=== PATIENT | male | born 1980 | race Caucasian/White ===

== ENCOUNTER 2016-12-26 01:05 | Emergency (ER) | payer OTHER ==
[~2016-12-26] VITALS: Ht 172.7 cm; Wt 83.4 kg
[2016-12-26] MEDS ORDERED: ZIPRASIDONE 20 MG INJ IM ONE ×2 (01:27→01:30)
[2016-12-26 02:02] LABS: HEMATOCRIT 41.6 % (39.2-51.8); HEMOGLOBIN 13.9 g/dL (13.7-18.0); WHITE BLOOD COUNT 8.4 x10^3/uL (3.4-10)
[2016-12-26 02:09] LABS: BLOOD UREA NITROGEN 22 mg/dL (7-18)
[2016-12-26 02:12] LABS: ACETAMINOPHEN < 2 mcg/mL (10-30)
[2016-12-26 06:41] VITALS: BP 131/70
== END 2016-12-26 06:42 | disposition home or self-care (01) ==
LOC: ED 02:36
DX: F15.150 Other stimulant abuse with stimulant-induced psychotic disorder with delusions (principal); Z72.9 Problem related to lifestyle, unspecified; Z87.891 Personal history of nicotine dependence; F22 Delusional disorders
CPT/HCPCS: 36415; 80048; 80307; 80329; 82040; 85025; 96372; 99284; J3486; G0480

== ENCOUNTER 2019-06-10 06:16 | Emergency (ER) | payer OTHER ==
[~2019-06-10] VITALS: Ht 180.3 cm; Wt 68.9 kg
[2019-06-10 06:21] VITALS: BP 125/80
[2019-06-10] MEDS ORDERED: PROPARACAINE OPHTH 0.5%, 15ML ONE (06:27)
[2019-06-10] MEDS ORDERED: FLUORESCEIN OPHTHALMIC 1 MG STRIP ONE (06:27)
--- NOTE | 2019-06-10 06:46 | NUR ---
Hima rodriguez in [facility] - 06/10/19 at 0648 by MONTY RECEIVED REPORT FROM SARAH WILSON AND ASSUMED CARE
[2019-06-10] MEDS ORDERED: DIPH,PERTUSS(ACELL),TET VAC/PF 0.5 ML IM-VACC ONE ×2 (07:00→07:04)
== END 2019-06-10 07:30 | disposition home or self-care (01) ==
LOC: ED 07:26
DX: T15.01XA Foreign body in cornea, right eye, initial encounter (principal); F17.200 Nicotine dependence, unspecified, uncomplicated; X58.XXXA Exposure to other specified factors, initial encounter; Y93.89 Activity, other specified; Y92.89 Other specified places as the place of occurrence of the external cause; Y99.8 Other external cause status
CPT/HCPCS: 65222; 90471; 90715; 99283

== ENCOUNTER 2019-12-08 12:48 | Outpatient (CLI) | payer OTHER ==
[2019-12-08] MEDS ORDERED: None at this Time (13:37)
== END 2019-12-08 23:59 | disposition home or self-care (01) ==
LOC: STAR 12:48
PROVIDERS: ATTEND Orthopaedic Surgery
DX: Z01.818 Encounter for other preprocedural examination (principal); Z11.59 Encounter for screening for other viral diseases
CPT/HCPCS: 36415; 87635

== ENCOUNTER 2019-12-12 05:38 | Day surgery (SDC) | payer OTHER ==
[~2019-12-12] VITALS: Ht 180.3 cm; Wt 70.2 kg
[~2019-12-12 05:38] MED LIST: None at this Time
[2019-12-12] MEDS ORDERED: LACTATED RINGERS 1,000 ML IV SCH (05:56)
[2019-12-12] MEDS ORDERED: IBUP-1223 PO (05:59)
[2019-12-12 06:00] VITALS: BP 125/81
[2019-12-12] MEDS ORDERED: BUPIVACAINE/PF 0.5% ONE (06:00)
[2019-12-12] MEDS ORDERED: CHLORHEXIDINE 15 ML UDC MM ONE (06:00)
[2019-12-12] MEDS ORDERED: LIDOCAINE 1%, 20ML ONE (06:01)
[2019-12-12] MEDS ORDERED: FENTANYL PF 100 MCG/2ML ONE ×2 (06:57→07:47)
[2019-12-12] MEDS ORDERED: PROPOFOL 50 ML ONE (06:57)
[2019-12-12] MEDS: FENTANYL PF 100 MCG/2ML IV PRN ×2 (07:49→07:55)
[2019-12-12] MEDS ORDERED: OXYcodone 5 MG/5 ML ORAL.SOL UDC ONE (07:58)
[2019-12-12] MEDS ORDERED: MEPERIDINE/PF 25MG/ML,1ML ONE (08:03)
[2019-12-12] MEDS ORDERED: KETOROLAC 30 MG/1 ML ONE (08:05)
[2019-12-12] MEDS ORDERED: DIPHENHYDRAMINE 50 MG/ML, 1ML IVPush PRN (08:30)
[2019-12-12] MEDS ORDERED: DIAZEPAM 5 MG/ML, 2ML IVPush PRN (08:30)
[2019-12-12] MEDS ORDERED: EPHEDRINE 50 MG/ML, 1ML IM PRN (08:30)
[2019-12-12] MEDS ORDERED: ONDANSETRON 2MG/ML, 2ML IVPush PRN (08:30)
[2019-12-12] MEDS ORDERED: morphine SULFATE 10 MG/ML, 1ML IVPush PRN (08:30)
[2019-12-12] MEDS ORDERED: PROMETHAZINE 25 MG/ML, 1ML IVPush PRN (08:30)
[2019-12-12] MEDS ORDERED: KETOROLAC 30 MG/1 ML IVPush PRN (08:30)
[2019-12-12] MEDS ORDERED: OXYcodone 5 MG/5 ML ORAL.SOL UDC PO PRN (08:30)
[2019-12-12] MEDS ORDERED: MEPERIDINE/PF 25MG/0.5ML IVPush PRN (08:30)
== END 2019-12-12 09:35 | disposition home or self-care (01) ==
LOC: OUT 05:38
PROVIDERS: ATTEND Orthopaedic Surgery
DX: M67.432 Ganglion, left wrist (principal); F17.200 Nicotine dependence, unspecified, uncomplicated; Z79.899 Other long term (current) drug therapy
CPT/HCPCS: 25111; 88304; J1885; J2175; J2704; J3010; J7120

== ENCOUNTER 2020-07-26 17:58 | Emergency (ER) | payer OTHER ==
[~2020-07-26] VITALS: Ht 180.3 cm; Wt 70.6 kg
[~2020-07-26 17:58] MED LIST changes: +IBUP-1223 PO
[2020-07-26 18:02] VITALS: BP 129/64
--- NOTE | 2020-07-26 18:47 | NUR ---
PT IN CHAIR WITH NO SIGNS OR SYMPTOMS OF ACUTE DISTRESS NOTED RESPIRATIONS EVEN AND UNLABORED.
[2020-07-26] MEDS ORDERED: PROPARACAINE OPHTH 0.5%, 15ML ONE (18:52)
== END 2020-07-26 19:32 | disposition home or self-care (01) ==
LOC: ED 19:30
DX: T15.01XA Foreign body in cornea, right eye, initial encounter (principal); W45.8XXA Other foreign body or object entering through skin, initial encounter; Y93.89 Activity, other specified; Y92.89 Other specified places as the place of occurrence of the external cause; Y99.8 Other external cause status
CPT/HCPCS: 65222; 99284

== ENCOUNTER 2020-08-30 15:34 | Emergency (ER) | payer OTHER ==
[~2020-08-30] VITALS: Ht 181.6 cm; Wt 65.9 kg
[2020-08-30 15:38] VITALS: BP 130/70
--- NOTE | 2020-08-30 19:13 | NUR ---
NIL AT THIS TIME
[2020-08-30] MEDS ORDERED: OLANZAPINE 5 MG TABLET ONE (19:21)
--- NOTE | 2020-08-30 19:23 | NUR ---
CONTROL OPERATOR [employer]OW [employer] ordered meds/ given per order. CONTROL OPERATOR [employer]OW [employer]AT provided resources, medications. Pt and friend verbalize understanding of instruct. Pt denies being SI/HI.
[2020-08-30] MEDS ORDERED: OLANZAPINE 5 MG TABLET PO ONE (19:30)
== END 2020-08-30 19:37 | disposition home or self-care (01) ==
LOC: ED 16:04
DX: F15.14 Other stimulant abuse with stimulant-induced mood disorder (principal); F17.200 Nicotine dependence, unspecified, uncomplicated
CPT/HCPCS: 99283

== ENCOUNTER 2020-09-14 09:10 | Emergency (ER) | payer OTHER ==
[~2020-09-14] VITALS: Ht 180.3 cm; Wt 68.0 kg
--- NOTE | 2020-09-14 09:15 | NUR ---
Pt brought in by [facility] from home with intermittent CP for past four days. PT reports worsening today with "sweaty hands, I tried two hits of weeds and it didnt help"
--- NOTE | 2020-09-14 09:23 | NUR ---
ERI Deleon at bedside for eval
[2020-09-14 10:11] LABS: BASOPHILS % (AUTO) 1 % (0-1); EOSINOPHILS % (AUTO) 2 % (1-7); LYMPHOCYTES % (AUTO) 35 % (22-44); MEAN CORPUSCULAR HEMOGLOBIN 30.3 pg (27.5-34.5); MEAN CORPUSCULAR HGB CONC 34.1 g/dL (33.2-36.2); MEAN PLATELET VOLUME 7.7 fL (7.4-10.4); MONOCYTES % (AUTO) 11 % (2-9); NEUTROPHILS % (AUTO) 52 % (42-75); PLATELET COUNT 288 x10^3/uL (130-400); RED BLOOD COUNT 4.92 x10^6/uL (4.38-5.82); RED CELL DISTRIBUTION WIDTH 14.6 % (9.4-14.8)
[2020-09-14 10:12] LABS: MD NO
[2020-09-14 10:22] LABS: ALANINE AMINOTRANSFERASE 21 U/L (12-78); ALBUMIN 4.2 g/dL (3.4-5.0); ANION GAP 5 mmol/L (5-15); CALCIUM 9.5 mg/dL (8.5-10.1); CHLORIDE 108 mmol/L (98-107); CREATININE 0.93 mg/dL (0.7-1.3)
[2020-09-14 10:26] LABS: ALKALINE PHOSPHATASE 66 U/L (45-117); TOTAL PROTEIN 7.4 g/dL (6.4-8.2); TROPONIN I < 0.015 ng/mL (0.000-0.045)
--- NOTE | 2020-09-14 11:06 | NUR ---
DISCHARGE INSTRUCTIONS REVIEWED
--- NOTE | 2020-09-14 11:07 | NUR ---
ERMD AT BEDSIDE TO DISCUSS POC
[2020-09-14] MEDS ORDERED: MAALOX/HYOSCYAMINE/LIDOCAINE 45 ML BTL ONE (11:29)
[2020-09-14] MEDS ORDERED: MAALOX/HYOSCYAMINE/LIDOCAINE 45 ML BTL PO ONE (11:30)
[2020-09-14 11:31] VITALS: BP 102/75
--- NOTE | 2020-09-14 11:36 | NUR ---
NEW DISCHARGE INSTRUCTIONS REVIEWED
== END 2020-09-14 11:38 | disposition home or self-care (01) ==
LOC: ED 10:16
DX: R07.89 Other chest pain (principal)
CPT/HCPCS: 36415; 71045; 80053; 84484; 85025; 93005; 99285